=== PATIENT | female | born 1980 | race Caucasian/White ===

== ENCOUNTER 2021-04-28 14:42 | Emergency (ER) | payer OTHER ==
[2021-04-28] MEDS ORDERED: BACTROBAN OINT22 GM EXT (15:20)
[2021-04-28] MEDS ORDERED: IBUPROFEN600 MG PO (15:20)
[2021-04-28] MEDS ORDERED: CLEOCIN HCL300 MG PO (15:20)
== END 2021-04-28 16:50 | disposition home or self-care (01) ==
LOC: ER1 14:42
DX: L03.116 Cellulitis of left lower limb (principal); F17.210 Nicotine dependence, cigarettes, uncomplicated; Z79.899 Other long term (current) drug therapy
CPT/HCPCS: 96374; 99283

== ENCOUNTER 2021-07-24 16:00 | Emergency (ER) | payer OTHER ==
[~2021-07-24 16:00] MED LIST: BACTROBAN OINT22 GM EXT; CLEOCIN HCL300 MG PO; IBUPROFEN600 MG PO
[2021-07-24 17:16] LABS: HEMOGLOBIN 13.7 gm/dl (12.3-15.3); RED BLOOD COUNT 4.11 M/UL (4.00-5.10); WHITE BLOOD COUNT 10.1 K/UL (4.5-11.0)
[2021-07-24 17:41] LABS: BUN/CREATININE RATIO 12 (0-10)
[2021-07-24] MEDS ORDERED: ZOFRAN ODT 4 MG4 MG PO (20:24)
[2021-07-24] MEDS ORDERED: NASONEX17 GM (20:24)
[2021-07-24] MEDS ORDERED: PROVENTIL HFA6.7 GM INH (20:24)
== END 2021-07-24 22:49 | disposition home or self-care (01) ==
LOC: ER1 16:00
PROVIDERS: Physician Assistant
DX: Z23 Encounter for immunization (principal); R07.9 Chest pain, unspecified; R05 Cough; Z20.822 Contact with and (suspected) exposure to COVID-19
CPT/HCPCS: 71045; 80053; 82550; 82553; 83874; 84484; 85025; 87081; 87880; 93005; 99284; M0243; U0003